=== PATIENT | female | born 1995 | race Caucasian/White ===

== ENCOUNTER → 2017-09-27 | Outpatient (CLI) | payer BC ==
--- NOTE | 2017-09-28 08:13 | USB ---
Reason for exam: clinical finding. History: Family history of breast cancer in paternal grandmother. Indicated problem(s): palpable abnormality in the left breast. Physical Findings: Nurse Summary: 1cm movable nodule at 6 o'clock (nurse dw). US Breast LT Left breast ultrasound includes all four quadrants, the retroareolar region and axilla. Finding demonstrates a 1.6 x 1.7 x 1.0cm oval, solid, vascular lesion at 6 o'clock and a 0.7 x 0.7 x 0.4cm oval, solid lesion at 7 o'clock. These results were verbally communicated with the patient and result sheet given to the patient on 09/27/17. ASSESSMENT: Suspicious, BI-RAD 4 RECOMMENDATION: Surgical consultation and ultrasound core biopsy of the left breast. (biopsy can be performed on largest lesion) Called Dr. Harper with mammographic findings and has scheduled an appointment for the patient for 10/02/17 at 1:[address] Rockwell. PRELIMINARY REPORT CALLED AND FAXED TO DR. ROCKWELL ON 09/28/17.
== END | disposition home or self-care (01) ==
LOC: RADUSWWP 14:50
PROVIDERS: ATTEND Obstetrics & Gynecology
DX: N63.24 Unspecified lump in the left breast, lower inner quadrant (principal)

== ENCOUNTER → 2017-10-04 | Day surgery (SDC) | payer BC ==
[2017-10-04 13:57] VITALS: RESP 16; TEMP 98.8; BMI 22.6
[2017-10-04 14:53] VITALS: BP 111/68; PULSE 61
--- NOTE | 2017-10-04 15:16 | USB ---
EXAMINATION TYPE: US biopsy breast VAD LT DATE OF EXAM: 10/04/2017 CLINICAL HISTORY: R92.8 Abnormal Mammogram. TECHNIQUE: Ultrasound guided core biopsy of left 6:00 breast. COMPARISON: NONE FINDINGS: The procedure of ultrasound guided core biopsy was explained to the patient. Benefits, alternatives, and risks were discussed. An informed consent was then obtained. The patient was placed in supine positioning for imaging and for the procedure. The overlying skin was prepped and draped in usual sterile fashion. Lidocaine buffered with bicarbonate was used as anesthetic into the skin and subcutaneous tissue up to area of concern in the left 6:00 breast. A dominic was made with surgical scalpel. Under ultrasound guidance, a 12-gauge vacuum assisted biopsy gun device was used to obtain 4 core samples. Following this, a biopsy clip was left in lesion. The patient tolerated the procedure well without any immediate complication. The patient was kept in the radiology department for short stay after the procedure and then discharged home in stable condition. IMPRESSION: Successful, uncomplicated ultrasound guided core biopsy of area of concern in the left 6:00 breast, full pathology results to follow. 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 Recommendation Follow up ultrasound of the left breast in 6 months. CLARISA
== END ==
LOC: RADUSWWP 13:13
PROVIDERS: ATTEND Surgery
DX: D24.2 Benign neoplasm of left breast (principal); R92.8 Other abnormal and inconclusive findings on diagnostic imaging of breast
CPT/HCPCS: 88305; 19083; A4648; J2001

== ENCOUNTER 2018-10-10 14:47 | Emergency (ER) | payer BC ==
[2018-10-10 14:57] VITALS: TEMP 98.4
[2018-10-10 15:06] LABS: Glucose,Whole Blood 251 mg/dL (75-99)
[2018-10-10] MEDS ORDERED: SODIUM CHLORIDE 0.9% 500 ML 500 ML IV STA (15:32)
[2018-10-10] MEDS ORDERED: SODIUM CHLORIDE 0.9% 1,000 ML IV STA ×3 (15:32→16:31)
[2018-10-10 16:04] LABS: Basophils % (A) 1 %; Eosinophils # (A) 0.1 k/uL (0-0.7); Eosinophils % (A) 1 %; HGB 15.7 gm/dL (11.4-16.0); Lymphocytes # (A) 2.6 k/uL (1.0-4.8); Lymphocytes % (A) 37 %; MCH 30.8 pg (25.0-35.0); MCHC 34.9 g/dL (31.0-37.0); MCV 88.2 fL (80.0-100.0); Monocytes # (A) 0.4 k/uL (0-1.0); Monocytes % (A) 5 %; Neutrophils # (A) 3.8 k/uL (1.3-7.7); Neutrophils % (A) 54 %; Platelet Count 345 k/uL (150-450); RDW 12.2 % (11.5-15.5); WBC 7.1 k/uL (3.8-10.6)
--- NOTE | 2018-10-10 16:08 | ED ---
Recheck HPI - General Chief Complaint: Recheck/Abnormal Lab/Rx Stated Complaint: Diabetic, high sugar levels, shaking. Time Seen by Provider: 10/10/18 15:29 Source: patient, RN notes reviewed, old records reviewed Mode of arrival: ambulatory Limitations: no limitations - History of Present Illness Initial Comments: This is a 23-year-old female the ER for evaluation of abnormal lab tests. Patient's blood sugars been running high. Otherwise she is asymptomatic no fevers no nausea no vomiting no diarrhea no chest pain no abdominal pain. Patient recently or the new workout plan and having some weight loss. Since then patient is also change her diet and is eating more times. No recent change in medication MD Complaint: abnormal lab (Hyperglycemia) -: days(s) Returns Today for: Called Because of Abnormal Lab/Test Symptoms Since Prior Visit: no new symptoms Context: called for abnormal lab result Associated Symptoms: none Treatments Prior to Arrival: home treatments - Related Data Home Medications Medication Instructions Recorded Confirmed Blisovi 24 Fe 1 tab PO DAILY 10/10/18 10/10/18 Insulin Aspart (For Pump) [NovoLOG 0.01 unit SQ-PUMP CONTINUOUS 10/10/18 (For Pump)] Allergies Allergy/AdvReac Type Severity Reaction Status Date / Time No Known Allergies Allergy Verified 10/10/18 16:23 Review of Systems ROS Statement: Those systems with pertinent positive or pertinent negative responses have been documented in the HPI. ROS Other: All systems not noted in ROS Statement are negative. Past Medical History Past Medical History: Diabetes Mellitus Additional Past Medical History / Comment(s): Type 1 History of Any Multi-Drug Resistant Organisms: None Reported Past Surgical History: Adenoidectomy, Tonsillectomy Additional Past Surgical History / Comment(s): 2016 [place] A Past Anesthesia/Blood Transfusion Reactions: No Reported Reaction Past Psychological History: No Psychological Hx Reported Smoking Status: Never smoker Past Alcohol Use History: None Reported Past Drug Use History: None Reported - Past Family History Mother Family Medical History: No Reported History General Exam Limitations: no limitations General appearance: alert, in no apparent distress Head exam: Present: atraumatic, normocephalic, normal inspection Eye exam: Present: normal appearance, PERRL, EOMI. Absent: scleral icterus, conjunctival injection, periorbital swelling ENT exam: Present: normal exam, mucous membranes moist Neck exam: Present: normal inspection. Absent: tenderness, meningismus, lymphadenopathy Respiratory exam: Present: normal lung sounds bilaterally. Absent: respiratory distress, wheezes, rales, rhonchi, stridor Cardiovascular Exam: Present: regular rate, normal rhythm, normal heart sounds. Absent: systolic murmur, diastolic murmur, rubs, gallop, clicks GI/Abdominal exam: Present: soft, normal bowel sounds. Absent: distended, tenderness, guarding, rebound, rigid Extremities exam: Present: normal inspection, full ROM, normal capillary refill. Absent: tenderness, pedal edema, joint swelling, calf tenderness Back exam: Present: normal inspection Neurological exam: Present: alert, oriented X3, CN II-XII intact Psychiatric exam: Present: normal affect, normal mood Skin exam: Present: warm, dry, intact, normal color. Absent: rash Course Vital Signs 10/10/18 10/10/18 10/10/18 14:52 15:35 16:00 Temperature 98.4 F Pulse Rate 118 H 85 85 Respiratory 16 16 19 Rate Blood Pressure 123/81 153/85 153/85 O2 Sat by Pulse 99 99 97 Oximetry 10/10/18 10/10/18 10/10/18 16:30 17:00 17:30 Temperature Pulse Rate 59 L 56 L Respiratory 10 L 16 Rate Blood Pressure 131/85 135/78 113/69 O2 Sat by Pulse 99 98 Oximetry 10/10/18 10/10/18 17:42 18:00 Temperature Pulse Rate 73 61 Respiratory 18 11 L Rate Blood Pressure 115/70 115/70 O2 Sat by Pulse 100 99 Oximetry Medical Decision Making - Medical Decision Making 23-year-old female the ER for evaluation, asymptomatic hyperglycemia secondary to new workout plan, dietary changes. 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 - Lab Data Result diagrams: 10/10/18 15:31 10/10/18 15:31 Lab Results 10/10/18 10/10/18 10/10/18 Range/Units 15:01 15:31 15:31 WBC 7.1 (3.8-10.6) k/uL RBC 5.10 (3.80-5.40) m/uL Hgb 15.7 (11.4-16.0) gm/dL Hct 45.0 (34.0-46.0) % MCV 88.2 (80.0-100.0) fL MCH 30.8 (25.0-35.0) pg MCHC 34.9 (31.0-37.0) g/dL RDW 12.2 (11.5-15.5) % Plt Count 345 (150-450) k/uL Neutrophils % 54 % Lymphocytes % 37 % Monocytes % 5 % Eosinophils % 1 % Basophils % 1 % Neutrophils # 3.8 (1.3-7.7) k/uL Lymphocytes # 2.6 (1.0-4.8) k/uL Monocytes # 0.4 (0-1.0) k/uL Eosinophils # 0.1 (0-0.7) k/uL Basophils # 0.0 (0-0.2) k/uL VBG pH (7.31-7.41) VBG pCO2 (37-51) mmHg VBG HCO3 (24-28) mmol/L Sodium 139 (137-145) mmol/L Potassium (3.5-5.1) mmol/L Chloride 102 (98-107) mmol/L Carbon Dioxide 22 (22-30) mmol/L Anion Gap 15 mmol/L BUN 11 (7-17) mg/dL Creatinine 0.70 (0.52-1.04) mg/dL Est GFR (CKD-EPI)AfAm >90 (>60 ml/min/1.73 sqM) Est GFR (CKD-EPI)NonAf >90 (>60 ml/min/1.73 sqM) Glucose 235 H (74-99) mg/dL POC Glucose (mg/dL) 251 H (75-99) mg/dL POC Glu Hadoop Consultant ID [email or web address] Calcium 10.1 (8.4-10.2) mg/dL Phosphorus 2.9 (2.5-4.5) mg/dL Magnesium 2.0 (1.6-2.3) mg/dL Total Bilirubin 0.8 (0.2-1.3) mg/dL AST 46 H (14-36) U/L ALT 35 (9-52) U/L Alkaline Phosphatase 85 (38-126) U/L Total Protein 9.8 H (6.3-8.2) g/dL Albumin 5.3 H (3.5-5.0) g/dL Urine Color Urine Appearance (Clear) Urine pH (5.0-8.0) Ur Specific [place] (1.001-1.035) Urine Protein (Negative) Urine Glucose (UA) (Negative) Urine Ketones (Negative) Urine Blood (Negative) Urine Nitrite (Negative) Urine Bilirubin (Negative) Urine Urobilinogen (<2.0) mg/dL Ur Leukocyte Esterase (Negative) Urine RBC (0-5) /hpf Urine WBC (0-5) /hpf Ur Squamous Epith Cells (0-4) /hpf Amorphous Sediment (None) /hpf Urine Bacteria (None) /hpf Urine Sperm (None) /hpf Acetone, Qual Negative (Negative) 10/10/18 10/10/18 Range/Units 15:31 16:10 WBC (3.8-10.6) k/uL RBC (3.80-5.40) m/uL Hgb (11.4-16.0) gm/dL Hct (34.0-46.0) % MCV (80.0-100.0) fL MCH (25.0-35.0) pg MCHC (31.0-37.0) g/dL RDW (11.5-15.5) % Plt Count (150-450) k/uL Neutrophils % % Lymphocytes % % Monocytes % % Eosinophils % % Basophils % % Neutrophils # (1.3-7.7) k/uL Lymphocytes # (1.0-4.8) k/uL Monocytes # (0-1.0) k/uL Eosinophils # (0-0.7) k/uL Basophils # (0-0.2) k/uL VBG pH 7.43 H (7.31-7.41) VBG pCO2 38 (37-51) mmHg VBG HCO3 25 (24-28) mmol/L Sodium (137-145) mmol/L Potassium (3.5-5.1) mmol/L Chloride (98-107) mmol/L Carbon Dioxide (22-30) mmol/L Anion Gap mmol/L BUN (7-17) mg/dL Creatinine (0.52-1.04) mg/dL Est GFR (CKD-EPI)AfAm (>60 ml/min/1.73 sqM) Est GFR (CKD-EPI)NonAf (>60 ml/min/1.73 sqM) Glucose (74-99) mg/dL POC Glucose (mg/dL) (75-99) mg/dL POC Glu Hadoop Consultant ID Calcium (8.4-10.2) mg/dL Phosphorus (2.5-4.5) mg/dL Magnesium (1.6-2.3) mg/dL Total Bilirubin (0.2-1.3) mg/dL AST (14-36) U/L ALT (9-52) U/L Alkaline Phosphatase (38-126) U/L Total Protein (6.3-8.2) g/dL Albumin (3.5-5.0) g/dL Urine Color Light Yellow Urine Appearance Cloudy H (Clear) Urine pH 6.5 (5.0-8.0) Ur Specific [place] 1.005 (1.001-1.035) Urine Protein Negative (Negative) Urine Glucose (UA) 4+ H (Negative) Urine Ketones Negative (Negative) Urine Blood Small H (Negative) Urine Nitrite Negative (Negative) Urine Bilirubin Negative (Negative) Urine Urobilinogen <2.0 (<2.0) mg/dL Ur Leukocyte Esterase Trace H (Negative) Urine RBC 3 (0-5) /hpf Urine WBC 10 H (0-5) /hpf Ur Squamous Epith Cells 34 H (0-4) /hpf Amorphous Sediment Occasional H (None) /hpf Urine Bacteria Many H (None) /hpf Urine Sperm Rare (None) /hpf Acetone, Qual (Negative) - EKG Data -: EKG Interpreted by Me (EKG shows sinus rate of 69, NH 124, QRS 96, QTc 426) Disposition Clinical Impression: Hyperglycemia Disposition: HOME SELF-CARE Condition: Good Instructions (If sedation given, give patient instructions): Diabetic Hyperglycemia (ED) Is patient prescribed a controlled substance at d/c from ED?: No Referrals: None,Stated [Primary Care Provider] - 1-2 days
[2018-10-10 16:13] LABS: Amorphous Sediment,Urine Occasional /hpf; Appearance,Urine Cloudy (Clear); Bacteria,Urine Many /hpf; Bilirubin,Urine Negative (Negative); Blood,Urine Small (Negative); Color,Urine Light Yellow; Glucose,Urine (UA) 4+ (Negative); Ketones,Urine Negative (Negative); Leukocyte Esterase,Urine Trace (Negative); Nitrite,Urine Negative (Negative); PH, Urine 6.5 (5.0-8.0); Protein,Urine Negative (Negative); RBC,Urine 3 /hpf (0-5); Specific Gravity,Urine 1.005 (1.001-1.035); Sperm,Urine Rare /hpf; Squamous Epithelial Cell,Urine 34 /hpf (0-4); Urobilinogen,Urine <2.0 mg/dL (<2.0); WBC,Urine 10 /hpf (0-5)
[2018-10-10 16:19] LABS: ALT 35 U/L (9-52); AST 46 U/L (14-36); Albumin 5.3 g/dL (3.5-5.0); Alkaline Phosphatase 85 U/L (38-126); Anion Gap 15 mmol/L; Blood Urea Nitrogen 11 mg/dL (7-17); Calcium 10.1 mg/dL (8.4-10.2); Carbon Dioxide 22 mmol/L (22-30); Chloride 102 mmol/L (98-107); Glucose 235 mg/dL (74-99); Phosphorus 2.9 mg/dL (2.5-4.5); Sodium 139 mmol/L (137-145); Total Bilirubin 0.8 mg/dL (0.2-1.3); Total Protein 9.8 g/dL (6.3-8.2)
[2018-10-10 16:26] LABS: VBG PH 7.43 (7.31-7.41)
[2018-10-10 17:47] VITALS: BP 115/70
[2018-10-10 18:20] VITALS: PULSE 61; RESP 11
[2018-10-11 00:35] LABS: Hemoglobin A1C 6.3 % (4.0-6.0)
== END 2018-10-10 18:20 | disposition home or self-care (01) ==
LOC: EC 14:47
DX: E10.65 Type 1 diabetes mellitus with hyperglycemia (principal); Z79.4 Long term (current) use of insulin
CPT/HCPCS: 36415; 80053; 81001; 82009; 82803; 83036; 83735; 84100; 85025; 87086; 93005; 96360; 96361; 99285

== ENCOUNTER → 2020-07-29 | Outpatient (CLI) | payer BC ==
[2020-07-29 15:13] LABS: African American GFR (CKD) 120.4 (60.0-200.0); Albumin 4.8 g/dL (3.80-4.90); Albumin/Globulin Ratio 1.85 (1.60-3.17); Anion Gap 9.9 mmol/L (4.00-12.00); Calcium 9.7 mg/dL (8.7-10.3); Carbon Dioxide 25.1 mmol/L (21.6-31.8); Chol/HDL Ratio 1.83; Globulin 2.6 g/dL (1.6-3.3); Magnesium 1.8 mg/dL (1.5-2.4); Non-African American GFR(CKD) 103.9 (60.0-200.0); Potassium 3.8 mmol/L (3.5-5.5); Total Bilirubin 1.2 mg/dL (0.3-1.2); Total Protein 7.4 g/dL (6.2-8.2)
[2020-07-29 15:20] LABS: T4, Free (Free Thyroxine) 1.2 ng/dL (0.80-1.80)
== END | disposition home or self-care (01) ==
LOC: LABWHC1 10:06
PROVIDERS: ATTEND Internal Medicine Endocrinology, Diabetes & Metabolism
DX: E55.9 Vitamin D deficiency, unspecified (principal); E10.9 Type 1 diabetes mellitus without complications
CPT/HCPCS: 36415; 80053; 80061; 82043; 82306; 82570; 82607; 83735; 84439; 84443

== ENCOUNTER → 2021-04-01 | Outpatient (CLI) | payer BC ==
--- NOTE | 2021-04-01 09:55 | USB ---
Reason for exam: clinical finding. History: Family history of breast cancer in paternal grandmother at age 60. Benign US biopsy breast VAD LT of the left breast, October 04, 2017. Took hormonal contraceptives for 5 years. Indicated problem(s): palpable abnormality in both breasts. Physical Findings: Nurse Summary: Patient states she feels a lump right breast x 3 weeks, left breast firm movable lump 1cm 10 o'clock, right breast 4cm firm lump 12 o'clock, very nodular bilaterally (nurse TM). US Breast Limited BILAT Right limited breast ultrasound including focal area of concern, retroareolar and axilla demonstrates a 2.2 x 1.3 x 2.1cm oval, solid, hypoechoic lesion at 12 o'clock BB. Likely fibroadenoma as was biopsy proven on the other side. 6 month follow up, excision is symptomatic. Left limited breast ultrasound including focal area of concern, retroareolar and axilla demonstrates a 2.8 x 2.1 x 0.7cm isoechoic, oval area similar to a fat lobule suggestive of a lipoma. Right scanned 11-1 o'clock. Left scanned 12-2 o'clock. These results were verbally communicated with the patient and result sheet given to the patient on 04/01/21. ASSESSMENT: Probably benign, BI-RAD 3 RECOMMENDATION: Ultrasound of the right breast in 6 months.
== END | disposition home or self-care (01) ==
LOC: RADUSWWP 07:30
PROVIDERS: ATTEND Obstetrics & Gynecology
DX: N63.10 Unspecified lump in the right breast, unspecified quadrant (principal)

== ENCOUNTER → 2021-09-07 | Outpatient (CLI) | payer BC ==
[2021-09-07 15:23] LABS: ALT 12 U/L (8-44); AST 18 U/L (13-35); African American GFR (CKD) 119.6 (60.0-200.0); Albumin 4.6 g/dL (3.8-4.9); Albumin/Globulin Ratio 1.53 (1.60-3.17); Alkaline Phosphatase 65 U/L (41-126); BUN/Creat Ratio 9.13 Ratio (12.00-20.00); Blood Urea Nitrogen 7.3 mg/dL (9.0-27.0); Calcium 9.6 mg/dL (8.7-10.3); Chloride 104 mmol/L (96-109); Chol/HDL Ratio 1.69 Ratio; Glucose 178 mg/dL (70-110); LDL Cholesterol,Calculated 57.5 mg/dL (0.0-131.0); Non-African American GFR(CKD) 103.2 (60.0-200.0); Potassium 4.6 mmol/L (3.5-5.5); Sodium 139 mmol/L (135-145); Total Protein 7.6 g/dL (6.2-8.2); VLDL Calculation 12.52 mg/dL (5.00-40.00)
== END | disposition home or self-care (01) ==
LOC: LABWHC1 09:07
PROVIDERS: ATTEND Internal Medicine Endocrinology, Diabetes & Metabolism
DX: E10.65 Type 1 diabetes mellitus with hyperglycemia (principal)
CPT/HCPCS: 36415; 80053; 80061; 82043; 82533; 82570; 83036; 84443; 86376

== ENCOUNTER → 2022-03-08 | Outpatient (CLI) | payer BC ==
[2022-03-08 18:33] LABS: African American GFR (CKD) 119.3 (60.0-200.0); Albumin 4.6 g/dL (3.8-4.9); Albumin/Globulin Ratio 1.52 (1.60-3.17); Anion Gap 11.1 mmol/L (10.00-18.00); BUN/Creat Ratio 7.73 Ratio (12.00-20.00); Blood Urea Nitrogen 6.2 mg/dL (9.0-27.0); Calcium 9.9 mg/dL (8.7-10.3); Carbon Dioxide 26.2 mmol/L (20.0-27.5); Non-African American GFR(CKD) 102.9 (60.0-200.0); Potassium 4.2 mmol/L (3.5-5.5); Total Bilirubin 0.7 mg/dL (0.30-1.20); Total Protein 7.7 g/dL (6.2-8.2); Triglycerides 45.9 mg/dL (0.00-149.00)
[2022-03-08 18:50] LABS: Chol/HDL Ratio 1.75 Ratio; LDL Cholesterol,Direct Reflex 67.7 mg/dL (0.00-129.00)
== END | disposition home or self-care (01) ==
LOC: LABWHC1 13:31
PROVIDERS: ATTEND Internal Medicine Endocrinology, Diabetes & Metabolism
DX: E10.65 Type 1 diabetes mellitus with hyperglycemia (principal)
CPT/HCPCS: 36415; 80053; 80061; 82043; 82570; 83036; 83721; 84443

== ENCOUNTER → 2022-07-19 | Outpatient (CLI) | payer BC ==
--- NOTE | 2022-07-19 09:19 | USB ---
Reason for Exam: Clinical finding. Patient History: Patient used Hormonal Contraceptives for 5 years. 10/04/2017, Benign Core Biopsy on the left side. Paternal grandmother had breast cancer, age 60. Technique: Method: Whole Breast Handheld. Findings: The whole breast of the right breast, the axilla of the right breast and the retroareolar of the right breast were scanned. Enlarging mass at the right 12:00 position measuring 4.0 x 2.3 cm versus 2.2 x 1.3 cm previously. While this likely reflects fibroadenoma tissue diagnosis is advised.. Overall Assessment: Suspicious, BI-RAD 4 Management: Ultrasound Core Biopsy of the right breast. A clinical breast exam by your physician is recommended on an annual basis and results should be correlated with mammographic findings. This exam should not preclude additional follow-up of suspicious palpable abnormalities. Results were given to the patient verbally at the time of exam. Electronically signed and approved by: Sergio Gooden M.D. Radiologis
== END | disposition home or self-care (01) ==
LOC: RADUSWWP 08:28
PROVIDERS: ATTEND Obstetrics & Gynecology
DX: N63.10 Unspecified lump in the right breast, unspecified quadrant (principal); Z80.3 Family history of malignant neoplasm of breast

== ENCOUNTER → 2022-08-02 | Day surgery (SDC) | payer BC ==
--- NOTE | 2022-08-08 14:02 | USB ---
Pathology Description: Location: 12 o'clock. Marker Left Behind. Needle Type: Mammotome Cores: 7 Gauge: 13 The procedure of ultrasound guided core biopsy was explained to the patient. Benefits, alternatives, and risks were discussed. An informed consent was then obtained. The 4.0 cm solid oval mass with posterior through transmission at the 12:00 position, 6 cm from the nipple is identified and targeted for biopsy. The patient was placed in supine positioning for imaging and for the procedure. The overlying skin was prepped and draped in usual sterile fashion. Lidocaine was used as anesthetic into the skin followed by lidocaine/epinephrine into the subcutaneous tissue up to area of concern in the 12:00 right breast. Under ultrasound guidance, a 13-gauge vacuum-assisted mammotome biopsy gun device was used to obtain 7 core samples. Following this, a T4 Hydromark butterfly clip was left in lesion. The patient tolerated the procedure well without any immediate complication. The patient was kept in the radiology department for short stay after the procedure and then discharged home in stable condition. Postprocedure mammogram deferred at this time. IMPRESSION: Successful, uncomplicated ultrasound guided core biopsy of large palpable 12:00 right breast mass, suspected fibroadenoma. Full pathology results to follow. Pathology Results: Result: Benign, Fibroadenoma. RIGHT BREAST, 12:00, BIOPSY: Inflamed fibroadenoma with usual ductal hyperplasia and features favoring juvenile fibroadenoma. Overall Assessment: Benign Management: Diagnostic Breast Ultrasound of the right breast in 6 months. Surgical consult if symptomatic. Electronically signed and approved by: Drew Rendon M.D. Radiologist
== END ==
LOC: RADUSWWP 12:40
PROVIDERS: ATTEND Surgery
DX: D24.1 Benign neoplasm of right breast (principal); N63.15 Unspecified lump in the right breast, overlapping quadrants
CPT/HCPCS: 88305; 19083; A4648

== ENCOUNTER → 2022-08-11 | Outpatient (CLI) | payer BC ==
[2022-08-11 15:07] VITALS: BP 154/92; PULSE 62; RESP 17; TEMP 98.7
--- NOTE | 2022-08-11 15:24 | P.GSHP ---
History of Present Illness H&P Date: 08/11/22 Chief Complaint: bilateral breast fibroadenoma Manuela is a 27 year old white female seen in consultation for Dr. Liu regarding a mass in her right breast. She noted a mass in her left breast in 2018 and a core biopsy was done which showed a fibroadenoma. They were fol lowing this site by ultrasound and there has been some increase in size. The last ultrasound of the left breast was approximately a year ago. Most recently she noted a lump in the right breast and an ultrasound was done revealing a 4 cm lesion. An ultrasound core biopsy revealed a inflamed fibroadenoma. She does not complain of pain in her right breast. She flet the right breast lesion about 1 year ago, since she noted it it has increased in size. He has never had any surgery on her breasts. The mass does not change in size with respect to her periods. 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 - Constitutional Constitutional: Denies chills, Denies fever - EENT Eyes: denies blurred vision, denies pain Ears: deny: decreased hearing, tinnitus Ears, nose, mouth and throat: Denies headache, Denies sore throat - Breasts Breasts: bilateral: as per HPI - Cardiovascular Cardiovascular: Denies chest pain, Denies shortness of breath - Respiratory Respiratory: Denies cough, Denies 7 - Gastrointestinal Gastrointestinal: Denies abdominal pain, Denies diarrhea, Denies nausea, Denies vomiting - Genitourinary (Female) Genitourinary: Denies dysuria, Denies hematuria - Menstruation Menstruation: Reports as per HPI - Musculoskeletal Musculoskeletal: Denies myalgias - Integumentary Integumentary: Denies pruritus, Denies rash - Neurological Neurological: Denies numbness, Denies weakness - Psychiatric Psychiatric: Denies anxiety, Denies depression - Endocrine Endocrine: Denies fatigue, Denies weight change - Hematologic/Lymphatic Comment: none - Allergic/Immunologic Allergic/Immunologic: Reports seasonal allergies Past Medical History Past Medical History: Diabetes Mellitus Additional Past Medical History / Comment(s): Type 1 History of Any Multi-Drug Resistant Organisms: None Reported Past Surgical History: Adenoidectomy, Tonsillectomy Additional Past Surgical History / Comment(s): 2015 [place] Castro teeeth removal Past Anesthesia/Blood Transfusion Reactions: No Reported Reaction Past Psychological History: No Psychological Hx Reported Smoking Status: Never smoker Past Alcohol Use History: Occasional Past Drug Use History: None Reported - Past Family History Mother Family Medical History: No Reported History Medications and Allergies Home Medications Medication Instructions Recorded Confirmed Type Blisovi 24 Fe 1 tab PO DAILY 10/10/18 08/11/22 History Insulin Aspart (For Pump) [NovoLOG 0.01 unit SQ-PUMP CONTINUOUS 10/10/18 08/11/22 History (For Pump)] Allergies Allergy/AdvReac Type Severity Reaction Status Date / Time No Known Allergies Allergy Verified 07/20/22 10:34 Surgical - Exam - General no distress - Eyes normal ocular movement - Neck trachea midline - Respiratory normal respiratory effort, clear to auscultation - Cardiovascular Rhythm: regular Heart Sounds: normal: S1, S2 - Abdomen Abdomen: soft, non tender, no guarding, no rigid, no rebound - Integumentary normal turgor - Neurologic no disoriented, no combative - Musculoskeletal normal gait, normal posture - Psychiatric oriented to time, oriented to person, oriented to place, speech is normal, memory intact Breast Exam: BRA: 38C inspection: Symmetry of the breast, right breast slightly larger than left breast, grade 2/3 ptosis right breast, grade 2 ptosis left breast Palpation: Right breast: Approximately 4 cm mass at the 12 o'clock position, ecchymosis related to recent biopsy no other dominant masses or nodules of concern Right axilla: No adenopathy of concern Left breast: Multi-positional exam fibrocystic changes, fullness 12 o'clock position Left axilla: No adenopathy of concern Results Ultrasound reviewed personally with radiologist Dr. Rendon Assessment and Plan Assessment: Impression: Bilateral fibroadenoma increasing in size Plan: Removal of right breast fibroadenoma via a mastopexy incision, onco-plastic tissue transfer; left breast ultrasound to assess Whether the Left Fibroadenoma Has Increased in Size If so Needle Localization and Excision of This Lesion This Would Be Done Via needle Localization of Left Breast Lesion, Onco-Plastic Tissue Transfer, Possible Mastopexy Incision Risk and benefits of the procedures discussed with the patient. She understands and wishes to proceed. CC: Dr. Liu
== END ==
LOC: WWCWWP 14:33
PROVIDERS: ATTEND Surgery
DX: Z85.3 Personal history of malignant neoplasm of breast (principal); E11.9 Type 2 diabetes mellitus without complications

== ENCOUNTER → 2022-08-30 | Outpatient (CLI) | payer BC ==
--- NOTE | 2022-08-30 17:27 | USB ---
Reason for Exam: Follow-up at short interval from prior study. Patient History: Patient used Hormonal Contraceptives for 5 years. 08/02/2022, Benign US biopsy breast VAD RT on the right side. 10/04/2017, Benign Core Biopsy on the left side. Paternal grandmother had breast cancer, age 60. Technique: Method: Whole Breast Handheld. Findings: The whole breast of the left breast, the axilla of the left breast and the retroareolar of the left breast were scanned. A complete US of all four quadrants of the breast, axilla, and retro-areolar region were reviewed. Patient with scheduled excision of right breast fibroadenoma. At the 6:00 position, 5 cm from the nipple, there is a previously biopsied 1.4 x 1.4 x 0.7 cm fibroadenoma containing a microclip from prior biopsy. At the 7:00 position, 5 cm from the nipple, small 6 x 5 x 4 mm oval hypoechoic mass with posterior through transmission. Either a debris-filled cyst or additional fibroadenoma favored. At the 11:00 position, 6 cm from the nipple, there is a round hypoechoic mass with through transmission measuring 7 x 7 x 5 mm, likely fibroadenoma. At the 10:00 position, 8 cm from the nipple, there is oval hypoechoic mass with through transmission measuring 11 x 8 x 4 mm, likely fibroadenoma. In the subareolar region, there is a solid cystic mass measuring 1.7 x 1.6 x 1.0 cm. Possible intracystic mass or intraductal mass including the possibility of a papilloma. Tissue sampling recommended. No axillary lymphadenopathy. Overall Assessment: Suspicious, BI-RAD 4 Management: Ultrasound Core Biopsy of the left breast. For the subareolar mass, possible intracystic or intraductal lesion including the possibility of papilloma. We also note the previously biopsied 6:00, 1.4 cm fibroadenoma. Additional small masses measuring up to 8 mm (at 7:00, 10:00, and 11:00), also likely represent fibroadenomas can be reassessed at follow-up. Results were given to the patient verbally at the time of exam. Electronically signed and approved by: Drew Rendon M.D. Radiologist
== END | disposition home or self-care (01) ==
LOC: RADUSWWP 14:18
PROVIDERS: ATTEND Surgery
DX: N63.20 Unspecified lump in the left breast, unspecified quadrant (principal); Z80.3 Family history of malignant neoplasm of breast; Z98.890 Other specified postprocedural states

== ENCOUNTER → 2024-10-01 | Outpatient (CLI) | payer BC ==
[2024-10-01 12:47] LABS: Microalbumin Creatinine Ratio <19 mg/g Cr (0-30); Urine Creatinine 63.2 mg/dL (28.0-217.0)
[2024-10-01 13:00] LABS: ALT 31 U/L (8-44); AST 41 U/L (13-35); Albumin 4.6 g/dL (3.8-4.9); Albumin/Globulin Ratio 1.64 Ratio (1.60-3.17); Alkaline Phosphatase 60 U/L (41-126); Blood Urea Nitrogen 10.8 mg/dL (9.0-27.0); Calcium 9.8 mg/dL (8.7-10.3); Carbon Dioxide 23.9 mmol/L (21.6-31.8); Chloride 101 mmol/L (96-109); Chol/HDL Ratio 2.16 Ratio; Globulin 2.8 g/dL (1.6-3.3); Glucose 189 mg/dL (70-110); LDL Cholesterol,Calculated 68.2 mg/dL (0.0-131.0); Sodium 139 mmol/L (135-145); Total Bilirubin 0.7 mg/dL (0.3-1.2); Total Protein 7.4 g/dL (6.2-8.2); VLDL Calculation 10.22 mg/dL (5.00-40.00)
== END | disposition home or self-care (01) ==
LOC: LABWHC1 07:24
PROVIDERS: ATTEND Internal Medicine Endocrinology, Diabetes & Metabolism
DX: E10.65 Type 1 diabetes mellitus with hyperglycemia (principal)
CPT/HCPCS: 36415; 80053; 80061; 82043; 82570; 83036; 84443